=== PATIENT | female | born 1990 | race American Indian/Alaskan Native ===

== ENCOUNTER 2018-01-06 15:22 | Emergency (ER) | payer SELFPAY ==
--- NOTE | 2018-01-06 19:49 | Emergency Department Report ---
Blank Doc - Documentation Documentation: pt is a 27 y/o femal that presents to er for rt thigh pain for 2 weeks. pt recently had long travel, car ride. pt denies cp/sob/fever/chills. pt states pain is worse with movement and better with rest. lmp - now. will order uhcg, d- dimer, cbc, and xr of femur.
[2018-01-06 21:04] LABS: Hematocrit 27.2 % (30.3-42.9); Hemoglobin 8.4 gm/dl (10.1-14.3); Mean Corpuscular HGB Conc 31 % (30-34); Platelet Count 238 K/mm3 (140-440)
[2018-01-06 21:07] LABS: HCG Qualitative,Urine Negative (Negative)
[2018-01-06 21:11] LABS: Mean Corpuscular Hemoglobin 20 pg (28-32); Mean Corpuscular Volume 65 fl (79-97); Red Cell Distribution Width 20.6 % (13.2-15.2)
--- NOTE | 2018-01-06 22:16 | XRay Report ---
FINAL REPORT EXAM: XR FEMUR 2+V RT HISTORY: pain. TECHNIQUE: Frontal and lateral views right femur Comparison: None FINDINGS: There is no evidence of fracture or subluxation. The hip joint is maintained. The soft tissues are unremarkable. IMPRESSION: 1. No evidence of fracture or subluxation.
[2018-01-06] MEDS ORDERED: MOTRIN PO ONE (22:53)
--- NOTE | 2018-01-06 22:53 | Emergency Department Report ---
ED Extremity Problem HPI - General Chief complaint: Extremity Problem,Nontraumatic Stated complaint: LEG PAIN RT LEG Source: patient Mode of arrival: Ambulatory Limitations: No Limitations - History of Present Illness Initial comments: pt is a 27 y/o female that presents to er for rt thigh pain for 2 weeks. pt recently had long travel, car ride. pt denies cp/sob/fever/chills. pt states pain is worse with movement and better with standing worse with sitting down. She had pain prior to her travels. Patient admits that she feels fatigued at times shortness of breath with exertion. She denies any bruising to her skin. She does admit to heavy bleeding last menstrual period was 01/04/2018. Patient reports that her pain is worse with standing and stretching movement. MD Complaint: extremity pain -: week(s) (2) Location: right History of Same: No Radiation: none Severity scale (0 -10): 9 (with sitting) Quality: burning, aching Consistency: intermittent Improves with: other (standing) Worsens with: other (sitting) Associated Symptoms: denies other symptoms - Related Data Previous Rx's Medication Instructions Recorded Last Taken Type Ferrous Sulfate 324 mg PO TID #90 tablet. 01/06/18 Unknown Rx Ibuprofen [Motrin 600 MG tab] 600 mg PO Q8H #30 tablet 01/06/18 Unknown Rx Allergies Allergy/AdvReac Type Severity Reaction Status Date / Time No Known Allergies Allergy Unverified 01/06/18 15:43 ED Review of Systems ROS: Stated complaint: LEG PAIN RT LEG Other details as noted in HPI Constitutional: no symptoms reported Musculoskeletal: myalgia (right thigh pain) ED Past Medical Hx - Past Medical History Previous Medical History?: No - Surgical History Past Surgical History?: Yes Additional Surgical History: C section - Social History Smoking Status: Never Smoker Substance Use Type: None - Medications Home Medications: Home Medications Medication Instructions Recorded Confirmed Last Taken Type Ferrous Sulfate 324 mg PO TID #90 tablet. 01/06/18 Unknown Rx Ibuprofen [Motrin 600 MG tab] 600 mg PO Q8H #30 tablet 01/06/18 Unknown Rx ED Physical Exam - General Limitations: No Limitations General appearance: alert, in no apparent distress - Head Head exam: Present: atraumatic, normocephalic - Extremities Exam Extremities exam: Present: full ROM. Absent: tenderness, pedal edema, joint swelling - Expanded Lower Extremity Exam Right Hip exam: Present: full ROM. Absent: tenderness, swelling, abrasion Knee exam: Present: normal inspection, full ROM Lower Leg exam: Present: normal inspection, full ROM Ankle exam: Present: normal inspection, full ROM - Neurological Exam Neurological exam: Present: alert, oriented X3 - Psychiatric Psychiatric exam: Present: normal affect, normal mood - Skin Skin exam: Present: warm, dry, intact, normal color. Absent: rash ED Course Vital Signs 01/06/18 15:41 Temperature 99.1 F Pulse Rate 59 L Respiratory 16 Rate Blood Pressure 112/57 O2 Sat by Pulse 100 Oximetry ED Medical Decision Making - Lab Data Result diagrams: 01/06/18 20:25 - Medical Decision Making Patient has been evaluated by this provider in [facility] as well as Dr. rivera Ibuprofen 600 mg given for pain management Discussed the patient that her blood is low shows anemia which is chronic for her place patient back on iron 3 times a day. Discussed the patient to take ibuprofen as needed for pain management and is very important for her to follow up with the primary care provider I will refer patient to [facility] as she does not have insurance at this time. Patient verbalized understanding Critical care attestation.: If time is entered above; I have spent that time in minutes in the direct care of this critically ill patient, excluding procedure time. ED Disposition Clinical Impression: Acute pain of right thigh Anemia Qualifiers: Anemia type: iron deficiency Iron deficiency anemia type: unspecified iron deficiency Qualified Code(s): D50.9 - Iron deficiency anemia, unspecified Disposition: DC- TO HOME OR SELFCARE Is pt being admited?: No Does the pt Need Aspirin: No Condition: Stable Instructions: Iron Deficiency Anemia (ED), Iron Rich Diet (ED), Anemia (ED) Additional Instructions: Please take iron pills as prescribed. Please take ibuprofen as needed for pain management. Follow up with a primary care provider I am referring U to [facility]. Prescriptions: Ferrous Sulfate 324 mg PO TID #90 tablet.dr Julien [Motrin 600 MG tab] 600 mg PO Q8H #30 tablet Referrals: PRIMARY CARE, [Primary Care Provider] - 3-5 Days [facility] [Provider Group] - 3-5 Days Forms: Work/School Release Form(ED)
[2018-01-06 23:36] VITALS: BP 110/61
== END 2018-01-06 23:35 | disposition home or self-care (01) ==
LOC: ED 15:22
DX: M79.651 Pain in right thigh (principal); D50.9 Iron deficiency anemia, unspecified
CPT/HCPCS: 36415; 81025; 85027; 85379; 99283